=== PATIENT | female | born 1975 | race African-American/Black ===

== ENCOUNTER 2023-06-04 09:36 | Inpatient (IN) | payer BC, OTHER ==
[2023-06-04 10:31] VITALS: BMI 28.9
[2023-06-04] MEDS ORDERED: chlordiazePOXIDE HCL 25 MG CAPSULE PO ONE (12:02)
[2023-06-04] MEDS ORDERED: LOPERAMIDE HCL 2 MG CAPSULE PO PRN (12:02)
[2023-06-04] MEDS ORDERED: BISMUTH SUBSALICYLATE 524 MG/30 ML PO PRN (12:02)
[2023-06-04] MEDS ORDERED: POLYETHYLENE GLYCOL (HEALTHYLAX) 3350 17 GM PACKET PO PRN (12:02)
[2023-06-04] MEDS ORDERED: METHOCARBAMOL 500 MG TABLET PO PRN (12:02)
[2023-06-04] MEDS ORDERED: IBUPROFEN 400 MG TABLET (FP) PO PRN (12:02)
[2023-06-04] MEDS ORDERED: guaiFENesin 600 MG TABLET.ER (FP) PO PRN (12:02)
[2023-06-04] MEDS ORDERED: NALOXONE HCL (KLOXXADO) 8 MG SPRAY NS PRN (12:02)
[2023-06-04] MEDS ORDERED: BENZONATATE 200 MG CAPSULE PO PRN (12:02)
[2023-06-04] MEDS ORDERED: IBUPROFEN 600 MG TABLET (FP) PO PRN (12:02)
[2023-06-04] MEDS ORDERED: ACETAMINOPHEN 325 MG TABLET (FP) PO PRN (12:02)
[2023-06-04] MEDS ORDERED: DICYCLOMINE HCL 10 MG CAPSULE PO PRN (12:02)
[2023-06-04] MEDS ORDERED: chlordiazePOXIDE HCL 25 MG CAPSULE PO PRN (12:02)
[2023-06-04] MEDS ORDERED: NALOXONE HCL 0.4 MG/ML VIAL IM PRN (12:02)
[2023-06-04] MEDS ORDERED: BENZOCAINE/MENTHOL (CHLORASEPTIC ) LOZENGE MM PRN (12:02)
[2023-06-04] MEDS ORDERED: ONDANSETRON *ODT* 4 MG TABLET SL PRN (12:02)
[2023-06-04] MEDS ORDERED: MAGNESIUM HYDROX 2400MG/30ML ORAL SUSPENSION 30 ML CUP PO PRN (12:02)
[2023-06-04] MEDS ORDERED: MAG HYDROX/AL HYDROX/SIMETH 30 ML UNIT-DOSE CUP PO PRN (12:02)
[2023-06-04] MEDS ORDERED: PANTOPRAZOLE 40 MG TABLET PO SCH (12:15)
[2023-06-04] MEDS ORDERED: chlordiazePOXIDE HCL 25 MG CAPSULE ONE (12:21)
[2023-06-04] MEDS ORDERED: IBUPROFEN 400 MG TABLET (FP) PO ONE (13:05)
[2023-06-04] MEDS: FERROUS SO4 325 MG TABLET (FP) PO SCH ×2 (13:54→22:23)
[2023-06-04] MEDS: ASCORBIC ACID 500 MG TABLET (FP) PO SCH (13:54)
[2023-06-04] MEDS: PANTOPRAZOLE 40 MG TABLET PO SCH (13:58)
[2023-06-04] MEDS: chlordiazePOXIDE HCL 25 MG CAPSULE PO SCH ×2 (17:31→22:23)
[2023-06-04] MEDS: THIAMINE HCL 100 MG TABLET (FP) PO SCH (22:23)
[2023-06-04] MEDS: MELATONIN 5 MG TABLETS PO SCH (22:23)
[2023-06-05] MEDS: chlordiazePOXIDE HCL 25 MG CAPSULE PO SCH ×4 (05:42→22:05)
[2023-06-05] MEDS: FERROUS SO4 325 MG TABLET (FP) PO SCH ×2 (10:15→22:06)
[2023-06-05] MEDS: PRENATAL VITAMINS W/ FOLIC ACID TABLET (FP) PO SCH (10:15)
[2023-06-05] MEDS: PANTOPRAZOLE 40 MG TABLET PO SCH (10:16)
[2023-06-05] MEDS: ASCORBIC ACID 500 MG TABLET (FP) PO SCH (10:17)
[2023-06-05 10:52] LABS: HEMATOCRIT 26.5 % (32.4-45.2); HEMOGLOBIN 7.9 GM/dL (10.7-15.3); MCH 20.7 pg (25.7-33.7); MCHC 29.7 g/dl (32.0-36.0); MEAN CELL VOLUME 69.8 fl (80-96); MEAN PLT VOLUME 7.2 fl (7.5-11.1); PLATELET COUNT 292 10^3/uL (134-434); RBC 3.79 M/mm3 (3.60-5.2); RDW 22.6 % (11.6-15.6); WHITE BLOOD COUNT 3.8 K/mm3 (4.0-10.0)
[2023-06-05 10:54] LABS: CHLORIDE 110 mmol/L (98-107); POTASSIUM 3.6 mmol/L (3.5-5.1); SODIUM 142 mmol/L (136-145)
[2023-06-05 10:58] LABS: CALCIUM 7.8 mg/dL (8.5-10.1)
[2023-06-05 10:59] LABS: ANION GAP 5 mmol/L (4-13); BLOOD UREA NITROGEN 11.1 mg/dL (7-18); CO2 27 mmol/L (21-32); GLUCOSE,RANDOM 131 mg/dL (74-106)
[2023-06-05 11:01] LABS: SGPT/ALT 14 U/L (13-61)
[2023-06-05 11:02] LABS: CREATININE 0.8 mg/dL (0.55-1.3); SGOT/AST 21 U/L (15-37)
[2023-06-05 11:03] LABS: BILIRUBIN,TOTAL 0.3 mg/dL (0.2-1); TOT PROT 6.2 g/dl (6.4-8.2)
[2023-06-05 11:04] LABS: ALK PHOS 37 U/L (45-117)
[2023-06-05] MEDS ORDERED: FLU VACCINE (FLULAVAL) PF 60 MCG/0.5 ML SYRINGE 2023-2024 IM ONE (12:00)
[2023-06-05] MEDS: THIAMINE HCL 100 MG TABLET (FP) PO SCH (22:06)
[2023-06-05] MEDS: MELATONIN 5 MG TABLETS PO SCH (22:06)
[2023-06-06] MEDS: chlordiazePOXIDE HCL 25 MG CAPSULE PO SCH ×4 (05:35→22:27)
[2023-06-06] MEDS: PRENATAL VITAMINS W/ FOLIC ACID TABLET (FP) PO SCH (10:07)
[2023-06-06] MEDS: hydrOXYzine PAMOATE 25 MG CAPSULE (FP) PO PRN ×2 (10:07→17:21)
[2023-06-06] MEDS: PANTOPRAZOLE 40 MG TABLET PO SCH (10:08)
[2023-06-06] MEDS: ASCORBIC ACID 500 MG TABLET (FP) PO SCH (10:08)
[2023-06-06] MEDS: FERROUS SO4 325 MG TABLET (FP) PO SCH ×2 (10:08→22:27)
[2023-06-06] MEDS: MELATONIN 5 MG TABLETS PO SCH (22:27)
[2023-06-06] MEDS: THIAMINE HCL 100 MG TABLET (FP) PO SCH (22:27)
[2023-06-07] MEDS ORDERED: chlordiazePOXIDE HCL 10 MG CAPSULE PO PRN
[2023-06-07] MEDS: chlordiazePOXIDE HCL 10 MG CAPSULE PO SCH ×4 (05:36→22:14)
[2023-06-07] MEDS: PANTOPRAZOLE 40 MG TABLET PO SCH (10:23)
[2023-06-07] MEDS: ASCORBIC ACID 500 MG TABLET (FP) PO SCH (10:23)
[2023-06-07] MEDS: PRENATAL VITAMINS W/ FOLIC ACID TABLET (FP) PO SCH (10:23)
[2023-06-07] MEDS: FERROUS SO4 325 MG TABLET (FP) PO SCH ×2 (10:23→22:13)
[2023-06-07] MEDS: THIAMINE HCL 100 MG TABLET (FP) PO SCH (22:13)
[2023-06-07] MEDS: MELATONIN 5 MG TABLETS PO SCH (22:14)
[2023-06-08] MEDS: chlordiazePOXIDE HCL 10 MG CAPSULE PO SCH ×2 (05:58→17:31)
[2023-06-08] MEDS: PRENATAL VITAMINS W/ FOLIC ACID TABLET (FP) PO SCH (10:14)
[2023-06-08] MEDS: FERROUS SO4 325 MG TABLET (FP) PO SCH ×2 (10:14→21:57)
[2023-06-08] MEDS: ASCORBIC ACID 500 MG TABLET (FP) PO SCH (10:14)
[2023-06-08] MEDS: PANTOPRAZOLE 40 MG TABLET PO SCH (10:14)
[2023-06-08] MEDS: MELATONIN 5 MG TABLETS PO SCH (21:57)
[2023-06-08] MEDS: THIAMINE HCL 100 MG TABLET (FP) PO SCH (21:57)
[2023-06-09] MEDS ORDERED: chlordiazePOXIDE HCL 10 MG CAPSULE PO ONE (05:00)
[2023-06-09] MEDS: PRENATAL VITAMINS W/ FOLIC ACID TABLET (FP) PO SCH (09:21)
[2023-06-09] MEDS: FERROUS SO4 325 MG TABLET (FP) PO SCH (09:23)
[2023-06-09] MEDS: ASCORBIC ACID 500 MG TABLET (FP) PO SCH (09:23)
[2023-06-09] MEDS: PANTOPRAZOLE 40 MG TABLET PO SCH (09:23)
[2023-06-09 11:39] VITALS: BP 126/76; PULSE 101; RESP 20; TEMP 96.9
== END 2023-06-09 09:16 | disposition home or self-care (01) | DRG 897 ==
LOC: YASAS 09:36 → Y6N 12:22
PROVIDERS: ADMIT Allergy & Immunology; ATTEND Surgery
PROC: HZ2ZZZZ Detoxification Services for Substance Abuse Treatment (ICD-10-PCS; principal; 2023-06-04)
DX: F10.230 Alcohol dependence with withdrawal, uncomplicated (principal); F10.280 Alcohol dependence with alcohol-induced anxiety disorder; F10.282 Alcohol dependence with alcohol-induced sleep disorder; F63.9 Impulse disorder, unspecified; D50.9 Iron deficiency anemia, unspecified; I10 Essential (primary) hypertension; K21.9 Gastro-esophageal reflux disease without esophagitis; M54.50 Low back pain, unspecified; G89.29 Other chronic pain; Z98.84 Bariatric surgery status
CPT/HCPCS: 36415; 80053; 80307; 81025; 83036; 85027; 86780; 87635; 90686; G0008